=== PATIENT | male | born 1980 | race Caucasian/White ===

== ENCOUNTER 2018-09-12 14:31 | Emergency (ER) | payer OTHER ==
[~2018-09-12] VITALS: Ht 177.8 cm; Wt 179.5 kg
[2018-09-12 14:35] VITALS: TEMP 96.8
[2018-09-12 14:59] LABS: BASO % 0.5 % (0.0-2.0); EOS # 0.3 (0.0-0.7); EOS % 3.4 % (0-4.0); GRAN # 6.5 (1.4-6.5); HEMATOCRIT 41.3 % (42.0-52.0); HEMOGLOBIN 13.3 g/dl (13.5-18.0); LYMPH # 1.3 (1.2-3.4); LYMPH % 14.8 % (20.0-51.0); MEAN CELL VOLUME 80 fl (80.0-100.0); MEAN CORPUSCULAR HEMOGLOBIN 26 pg (27.0-31.0); MEAN CORPUSCULAR HGB CONC 32 g/dl (33.0-37.0); MONO # 0.6 (0.1-0.6); PLATELET COUNT 203 K/mm3 (130-400); RED BLOOD COUNT 5.14 M/mm3 (4.20-5.60); REDCELL DISTRIBUTION WIDTH-CV 14.1 % (11.5-14.5)
[2018-09-12 15:02] LABS: PROTHROMBIN TIME 11.7 SECONDS (9.7-12.8)
[2018-09-12 15:05] LABS: PARTIAL THROMBOPLASTIN TIME 35.2 SECONDS (26.0-37.0)
[2018-09-12 15:07] LABS: ALANINE AMINOTRANSFERASE 29 U/L (21-72); ALBUMIN 3.9 gm/dL (3.5-5.0); ALKALINE PHOSPHATASE 103 U/L (50-136); ANION GAP 10 mmol/L (7-16); AST,SGOT 22 U/L (15-37); BILIRUBIN,TOTAL 0.3 mg/dL (0.0-1.0); BLOOD UREA NITROGEN 16 mg/dL (9-20); CALCIUM 8.7 mg/dL (8.4-10.2); CARBON DIOXIDE 26 mmol/L (22-30); CHLORIDE 103 mmol/L (98-107); CREATININE, serum 1.11 mg/dL (0.66-1.25); GLUCOSE 91 mg/dL (74-106); POTASSIUM 4.1 mmol/L (3.4-5.0); SODIUM 138 mmol/L (137-145)
[2018-09-12] MEDS ORDERED: SYNTHROID0.1 MG/TAB PO (15:15)
[2018-09-12 15:20] LABS: TROPONIN-I < 0.012 ng/mL (0.000-0.035)
[2018-09-12 19:05] VITALS: BP 129/85; PULSE 82
[2018-09-12] MEDS ORDERED: PREDNISONE20 MG PO (19:12)
== END 2018-09-12 19:29 | disposition home or self-care (01) ==
LOC: COL.ER 14:31
PROVIDERS: Family Medicine
DX: R07.89 Other chest pain (principal); R06.00 Dyspnea, unspecified
CPT/HCPCS: J7512

== ENCOUNTER 2018-12-16 10:19 | Outpatient (RCR) | payer OTHER ==
[~2018-12-16 10:19] MED LIST: PREDNISONE20 MG PO; SYNTHROID0.1 MG/TAB PO
== END 2018-12-18 08:30 ==
LOC: WSOH 10:19
DX: Z01.89 Encounter for other specified special examinations (principal)

== ENCOUNTER 2021-05-23 18:22 | Emergency (ER) | payer OTHER ==
[~2021-05-23] VITALS: Ht 175.3 cm; Wt 204.5 kg
[2021-05-23 19:01] VITALS: TEMP 98.4
[2021-05-23 19:46] LABS: BASO % 0.4 % (0.0-2.0); EOS # 0.3 K/mm3 (0.0-0.7); EOS % 2.9 % (0-4.0); GRAN # 7.4 K/mm3 (1.4-6.5); GRAN % 72.6 % (42.2-75.2); HEMATOCRIT 43.2 % (42.0-52.0); HEMOGLOBIN 13.8 g/dl (13.5-18.0); LYMPH # 1.7 K/mm3 (1.2-3.4); LYMPH % 16.3 % (20.0-51.0); MEAN CELL VOLUME 81 fl (80.0-100.0); MEAN CORPUSCULAR HEMOGLOBIN 26 pg (27.0-31.0); MEAN CORPUSCULAR HGB CONC 32 g/dl (33.0-37.0); MEAN PLATELET VOLUME 9.6 fl (7.4-10.4); MONO # 0.8 K/mm3 (0.1-0.6); MONO % 7.5 % (1.7-9.3); PLATELET COUNT 247 K/mm3 (130-400); RED BLOOD COUNT 5.32 M/mm3 (4.20-5.60); REDCELL DISTRIBUTION WIDTH-CV 14.8 % (11.5-14.5)
[2021-05-23 20:03] LABS: ALANINE AMINOTRANSFERASE 24 U/L (0-55); ALBUMIN 3.8 gm/dL (3.5-5.0); ALKALINE PHOSPHATASE 114 U/L (0-750); ANION GAP 10 mmol/L (7-16); AST,SGOT 19 U/L (5-34); BILIRUBIN,TOTAL 0.3 mg/dL (0.2-1.2); BLOOD UREA NITROGEN 14 mg/dL (9-21); CALCIUM 9.3 mg/dL (8.4-10.2); CARBON DIOXIDE 25 mmol/L (22-29); CHLORIDE 105 mmol/L (98-107); CREATININE, serum 1.28 mg/dL (0.72-1.25); GLUCOSE 98 mg/dL (70-99); POTASSIUM 3.9 mmol/L (3.5-4.5); SODIUM 140 mmol/L (136-145); TOTAL PROTEIN 7.5 gm/dL (6.2-8.1)
[2021-05-23 20:19] LABS: TROPONIN-I < 0.010 ng/mL (0.00-0.033)
[2021-05-23 22:27] VITALS: BP 165/92; PULSE 90
== END 2021-05-23 22:25 | disposition home or self-care (01) ==
LOC: COL.ER 18:22
PROVIDERS: Nurse Practitioner
DX: R06.02 Shortness of breath (principal); R60.0 Localized edema; E03.9 Hypothyroidism, unspecified; I10 Essential (primary) hypertension; Z79.890 Hormone replacement therapy
CPT/HCPCS: Q9967

== ENCOUNTER 2024-05-15 10:40 | Day surgery (SDC) | payer OTHER, BC ==
[~2024-05-15] VITALS: Ht 175.3 cm; Wt 148.1 kg
[~2024-05-15 10:40] MED LIST changes: +FLEXERIL 1010 MG/TAB PO; +LR 1,000 ML IV SCH; +Ondansetron 4 MG/2 ML VIAL IV PRN; +PRINIVIL10 MG PO; +VOLTAREN 75 DR75 MG PO; +WELLBUTRIN XL150 MG PO; +ZYRTEC 10MG10 MG PO
[2024-05-15] MEDS ORDERED: PRIL40 PO (12:28)
[2024-05-15] MEDS ORDERED: ADIPEX-P37.5 M2 PO (12:29)
[2024-05-15] MEDS ORDERED: ROXICODONE 55 MG/TAB PO (12:29)
[2024-05-15] MEDS ORDERED: SYNTHROID0.112 MG/T PO (12:30)
[2024-05-15] MEDS ORDERED: ZEPBOUND15 MG/0.5 SQ (12:30)
[2024-05-15] MEDS ORDERED: fentaNYL 50 MCG/ML 2 ML VIAL ONE (12:35)
[2024-05-15] MEDS ORDERED: Lidocaine PF 2% (20 MG/ML) 5 ML VIAL ONE (12:35)
[2024-05-15 13:10] VITALS: BP 125/82; PULSE 72; TEMP 97.1
[2024-05-15 13:18] VITALS: BP 122/78; PULSE 77; TEMP 97.6
[2024-05-15 13:25] VITALS: BP 116/69; PULSE 72
--- NOTE | 2024-05-15 13:40 | NUR ---
1310 RETURNS TO ROOM 1 PER CART. AWAKE, ALERT. RESP UNLABORED. AMBULATES TO RECLINER WITH STANDBY ASSIST. DENIES NAUSEA OR ABD PAIN. VITAL SIGNS OBTAINED. CALL LIGHT AT SIDE. IN ROOM 1325 DR REYNOSO HERE TO VISIT WITH PATIENT 1330 TOLERATES PO SODA AND MUFFIN WITHOUT NAUSEA. DISCHARGE INSTRUCTIONS REVIEWED. PATIENT VERBALIZES UNDERSTANDING. COPY PROVIDED IN DISCHARGE FOLDER
== END 2024-05-15 13:40 | disposition home or self-care (01) ==
LOC: SDCO 10:40
DX: Z12.11 Encounter for screening for malignant neoplasm of colon (principal); K57.30 Diverticulosis of large intestine without perforation or abscess without bleeding; G47.33 Obstructive sleep apnea (adult) (pediatric); E66.01 Morbid (severe) obesity due to excess calories; Z87.891 Personal history of nicotine dependence; Z99.89 Dependence on other enabling machines and devices
CPT/HCPCS: J2704; J3010; J7120